=== PATIENT | female | born 1970 | race Caucasian/White ===

== ENCOUNTER 2016-12-26 21:18 | Emergency (ER) | payer MEDICAID ==
[~2016-12-26] VITALS: Wt 63.5 kg
[2016-12-26] MEDS ORDERED: LORA-186 PO (21:53)
[2016-12-26] MEDS ORDERED: PROM5SYR2 PO (21:53)
[2016-12-26] MEDS ORDERED: IBUP-1542 PO (21:53)
--- NOTE | 2016-12-26 22:06 | ERD ---
ER Documentation Chief Complaint Date/Time DATE: 12/26/16 TIME: 22:04 Chief Complaint Sorethroat X3 days HPI This is a 46-year-old female presenting to the emergency department complaining of sore throat, voice loss, cough, congestion and fevers for the past 2 days. Patient states that her sore throat is achy, worse with cough and she rates it moderate in severity. Patient denies any current fevers. She denies any shortness of breath. She admits to having mild chest pain only when she coughs. She states that she took down some about 6 hours prior to being seen. ROS All systems reviewed and are negative except as per history of present illness. Medications Home Meds Active Scripts Loratadine* (Claritin*) 10 Mg Tablet, 10 MG PO DAILY, #30 TAB Prov:SUGEY ONOFRE PA-C 12/26/16 Promethazine HCl/Codeine (Prometh-Codein 6.25-10 mg/5 ml) 5 Ml Syrup, 5 ML PO Q4 Y for COUGH, #80 Prov:SUGEY ONOFRE PA-C 12/26/16 Ibuprofen* (Motrin*) 600 Mg Tab, 600 MG PO Q6H Y for PAIN AND OR ELEVATED TEMP, #30 TAB Prov:SUGEY ONOFRE PA-C 12/26/16 Allergies Allergies: Coded Allergies: No Known Allergy (Unverified , 12/26/16) Physical Exam Vitals Vital Signs Date Time Temp Pulse Resp B/P Pulse Ox O2 Delivery O2 Flow Rate FiO2 12/26/16 21:46 98.6 76 20 122/71 99 Physical Exam GENERAL: well-developed/well-nourished, in no apparent distress, non-toxic appearing HEAD: NC/AT, no swelling noted in frontal or maxillary areas EARS: bilateral tympanic membrane is intact without erythema or effusion NARES: Patent THROAT: oropharynx non-erythematous without exudates, no tonsil enlargement EYES: Conjunctiva normal NECK: Supple, no lymphadenopathy PULM: CTA bilaterally, no rales, rhonchi, or wheezing heard CV: Normal S1S2, RRR, good capillary refill GI: Soft, non-distended, normal bowel sounds, non-tender BACK: No midline tenderness, no masses EXT No clubbing, cyanosis, or edema NEURO: Alert and Orientated SKIN: Intact, normal turgor PSYCH: Normal mood and mentation Procedures/MDM This is a 46-year-old female presenting to the emergency department with symptoms and signs that are most consistent with viral upper respiratory infection and laryngitis. There was no evidence of strep pharyngitis, otitis media, pneumonia, respiratory distress, epiglottitis due to physical examination. Patient is afebrile, airways are intact she appears well. Patient is suitable for discharge for home with precautions to return the emergency room for any worsening signs or symptoms. Prescription for promethazine with codeine, Claritin and ibuprofen was provided. She understands and agrees with this plan Departure Diagnosis: Primary Impression: Laryngitis Additional Impression: URI (upper respiratory infection) URI type: unspecified viral URI Qualified Code: J06.9 - Viral upper respiratory tract infection Condition: Stable Patient Instructions: Preventing Common Respiratory Infections, Laryngitis, Uri , Viral, No Abx (Adult) [facility]errals[facility] Usted se wei hecho un examen mdico de control que le indica que no est en lian condicin que requiera tratamiento urgente en el Departamento de Emergencia. Un estudio ms profundo y el tratamiento de choi condicin pueden esperar sin ningn riesgo hasta que usted sea atendida/o en el consultorio de choi mdico o lian cl candie. Es responsabilidad suya arreglar lian dion para el seguimiento del willis. MANEJO DE CONDICIONES NO URGENTES EN EL FUTURO 1) Si usted tiene un mdico de atencin primaria: Usted debera llamar a choi mdico de atencin primaria antes de venir al departamento de emergencia. Despus de las horas de consultorio, choi doctor o choi asociado/a est disponible por telfono. El mdico o enfermero de buddy en el servicio telefnico puede asesorarle por pedro medio para atender el problema, o willis contrario se puede programar lian dion. 2) Si usted no tiene un mdico de atencin primaria: Llame al mdico o clnica de referencia que aparece abajo sacha las horas de consultorio para hacer lian dion para que le vean. CLINICAS: [facility] [phone] [facility] [phone] [facility] [phone] [place] [phone] [place] [address] [phone] [facility] [phone] [address] Additional Instructions: Visite a choi mdico maana para un EXAMEN.Regrese a estas instalaciones si no se mejora kvng esperbamos o kvng le dijimos. Casar toda la medicina ihsan y kvng se le indic. Regrese a estas instalaciones si no se mejora kvng esperbamos o kvng le dijimos. La medicina que se le recet puede causarle sueo.NO DEBE MANEJAR NI OPERAR MAQUINARIAS PELIGROSAS mientras esta tomando esta medicina! SUGEY ONOFRE PA-C December 26, 2016 22:06
== END 2016-12-26 21:51 | disposition home or self-care (01) ==
LOC: E/R 21:18
DX: J04.0 Acute laryngitis (principal); J06.9 Acute upper respiratory infection, unspecified
CPT/HCPCS: 99283